=== PATIENT | male | born 1980 | race Two or more races ===

== ENCOUNTER 2019-03-29 02:46 | Emergency (ER) | payer OTHER, SELFPAY ==
[~2019-03-29] VITALS: Ht 180.3 cm; Wt 81.3 kg
[2019-03-29 02:49] VITALS: BP 171/84
--- NOTE | 2019-03-29 03:12 | NUR ---
PT C/O SORE TO BACKSIDE, STARTED YESTERDAY, REPORTS HX OF SAME 15 YEARS AGO. PT DENIES ANY DRAINGE OR BLEEDING. PT DENIES ANY DAILY MEDICATION USE.
--- NOTE | 2019-03-29 03:55 | NUR ---
REVIEWED DISCHARGE INSTRUCTIONS AND PRESCRIPTIONS W/ PT, VERBALIZED UNDERSTANDING TO INFORMATION PROVIDED INCLUDING FOLLOW UP CARE, RETURN PRECAUTIONS AND MEDICATIONS. ADDRESSED QUESTIONS R/T WOUND CARE AND RETURN PRECAUTIONS, DENIED FURTHER QUESTIONS/CONCERNS. PT AMBULATED FROM ED WITHOUT DIFFICULTY.
[2019-03-29] MEDS ORDERED: OMNIPAQUE 350 MG/ML, 100ML BOTTLE ONE (22:15)
== END 2019-03-29 03:58 | disposition home or self-care (01) ==
LOC: ED 03:47
DX: K61.1 Rectal abscess (principal)
CPT/HCPCS: 74177; 99284; Q9967

== ENCOUNTER 2019-03-29 20:23 | Emergency (ER) | payer OTHER ==
[~2019-03-29] VITALS: Ht 180.3 cm; Wt 79.7 kg
[2019-03-29 20:47] VITALS: BP 140/81
[2019-03-29] MEDS ORDERED: ONDANSETRON 2MG/ML, 2ML ONE (22:09)
[2019-03-29] MEDS ORDERED: MORPHINE SULFATE 4 MG/ML, 1ML ONE (22:09)
[2019-03-29] MEDS ORDERED: HYDROmorphone 1 MG/ML, 1ML VIAL ONE (23:00)
[2019-03-29] MEDS ORDERED: LIDOCAINE-MPF 1%, 5ML ONE (23:23)
[2019-03-29] MEDS ORDERED: CEFTRIAXONE PMX 1GM/50ML 50 ML ONE (23:45)
[2019-03-30 15:07] LABS: MEAN CORPUSCULAR HEMOGLOBIN 30.5 pg (27.5-34.5); MEAN CORPUSCULAR HGB CONC 33.6 g/dL (33.2-36.2); MEAN CORPUSCULAR VOLUME 90.9 fL (81-97); RED BLOOD COUNT 4.19 x10^6/uL (4.38-5.82); RED CELL DISTRIBUTION WIDTH 13.4 % (9.4-14.8)
[2019-03-30 15:08] LABS: MD YES; MEAN PLATELET VOLUME 8.7 fL (7.4-10.4); PLATELET COUNT 239 x10^3/uL (130-400)
[2019-03-30 15:26] LABS: <PLATELET ESTIMATE> ADEQUATE; <PLT MORPHOLOGY> NORMAL PLT MORPH; <RBC MORPHOLOGY> NORMAL; LYMPH#(MANUAL) 1.47 x10^3/uL (1-3.4); LYMPHS% (MANUAL) 14 % (22-44); MONOS#(MANUAL) 0.53 x10^3/uL (0.3-2.7); MONOS% (MANUAL) 5 % (2-9); SEG#(MANUAL) 8.51 x10^3/uL (1.8-6.8); SEGS% (MANUAL) 81 % (42-75)
[2019-03-30 15:59] LABS: ANION GAP 6 mmol/L (5-15); CALCIUM 8.8 mg/dL (8.5-10.1); CHLORIDE 110 mmol/L (98-107); CREATININE 0.97 mg/dL (0.7-1.3)
== END 2019-03-30 00:34 ==
LOC: ED 03-30 00:27
DX: K61.1 Rectal abscess (principal)
CPT/HCPCS: 10060; 36415; 46040; 80048; 83605; 84145; 85025; 87040; 99283; 99284